=== PATIENT | female | born 1960 | race Caucasian/White ===

== ENCOUNTER 2023-07-11 13:20 | Emergency (ER) | payer SELFPAY ==
[2023-07-11 13:49] VITALS: BP 116/69; PULSE 72; RESP 16; TEMP 36.8; O2SAT 95; BMI 19.5
--- NOTE | 2023-07-11 13:55 | XR_ITS ---
WS: [id number] Left knee, 3 views, 07/11/2023 Clinical Data: fall injury Comparison: None. Findings: There is irregularity of the tibial spines which could indicate an acute fracture. The joint spaces s how no narrowing. The left patella is intact. There is soft tissue swelling over the medial aspect of the left knee. Impression: Irregularity of the tibial spines which could represent a tibial spine fracture.
--- NOTE | 2023-07-11 13:56 | W.ED.EXTPRO ---
HPI - Extremity Problem General: Chief complaint: Extremity Injury, Lower Stated complaint: fall, left knee injury Time Seen by Provider: 07/11/23 13:55 History of Present Illness: 63-year-old female comes in today for complaints of injury to the left knee. Patient endorses that she was walking across the floor when her cat got under her foot causing her to fall and strike her knee against the concrete floor. Since then patient has had increased pain and discomfort to the anterior part of the knee. Patient denies any prior injuries. Patient is a chronic cigarette smoker. Patient takes no routine medications. Patient uses acetaminophen for pain. Patient appears nontoxic. Associated symptoms: Deny chest pain or fever(s) Review of Systems General: Reports: 10 or more systems reviewed and unremarkable except in HPI and below Const: Denies: fever(s) Card: Denies: chest pain Resp: Denies: dyspnea GI: Denies: nausea or vomiting Musc: Reports: joint pain (Left knee) Physical Exam Const: COMMON NORMALS: alert HENMT: COMMON NORMALS: normocephalic HEAD & SCALP: normocephalic Neck/C-Spine: COMMON NORMALS: full ROM Resp: COMMON NORMALS: normal respiratory effort and clear to auscultation bilaterally AUSCULTATION: clear to auscultation bilaterally Cardio: COMMON NORMALS: regular rate and regular rhythm RATE: regular rate RHYTHM: regular rhythm Back/Pelvis: COMMON NORMALS: thoracic and lumbar spine normal to inspection Extremity: LEFT LOWER EXTREMITY: Yes knee joint (Anterior tenderness, decreased range of motion due to pain) Left knee: Yes inspection, Yes palpation, Yes ROM and Yes neurovascular exam Neuro: SENSORIUM/ORIENTATION: Yes alert Skin: COMMON NORMALS: turgor normal GENERAL SKIN EXAM: turgor normal Course Vital Signs: Vital signs: Vital Signs Temperature 98.2 F 07/11/23 13:49 Pulse Rate 72 07/11/23 13:49 Respiratory Rate 16 07/11/23 13:49 Blood Pressure 116/69 07/11/23 13:49 Pulse Oximetry 95 07/11/23 13:49 Oxygen Delivery Me thod Room Air 07/11/23 13:49 MDM - Extremity (Nontraumatic) Medical Decision Making 63-year-old female comes in today for complaints of injury to the left knee. On exam patient has some tenderness to the anterior part of the left knee along the joint line. Patella is nontender to palpation. Vital signs are normal. Differential diagnosis includes contusion, meniscal injury, ligament injury, dislocation, fracture. X-ray of the knee noted a tibial spine fracture. Reviewed this with Dr. Yi whom agreed with plan for knee immobilizer and crutches, and requested CT scan for further evaluation of injury for possible surgical intervention. Discussed this with patient who agreed to plan and recommendations for follow-up or return to the ER. All radiology interpretation(s) finalized by discharge Discharge Plan Discharge Patient Disposition: Home Clinical Impression: Closed displaced fracture of tibial spine Qualifiers: Encounter type: initial encounter Laterality: left Qualified Code(s): S82.112A - Displaced fracture of left tibial spine, initial encounter for closed fracture Condition: Stable Prescriptions: New hydrocodone-acetaminophen 5-325 mg tablet 1 tab PO Q6H PRN (Reason: pain) Qty: 12 0RF Discharge Orders: Discharge ED (Routine); Ordered 07/11/23 Ordered By: Sreekanth Jackson Referrals: Emely Yi MD [Physician] - Discharge Diet: Usual diet Discharge Activity: Increase activity as tolerated Patient Instructions: Fractures - Knee Activity Restrictions/Additional Instructions: Use acetaminophen and/or ibuprofen to help control pain. Use hydrocodone for severe pain. Use ice packs for further pain relief. Elevate leg is much as possible. Wear knee immobilizer and use crutches for ambulation. Case management will help you contact orthopedics for follow-up. You are welcome to follow-up with the orthopedist of your choice. Return to ED for new concerns. Coding Level of Care Code ED [employer] for Saeed Alan
--- NOTE | 2023-07-11 15:06 | CTR_ITS ---
PROCEDURE INFORMATION: Exam: CT Left Lower Extremity Without Contrast, Knee Exam date and time: 07/11/2023 4:14 PM Age: 63 years old Clinical indication: Injury or trauma; Fall; Blunt trauma; Left; Patient HX: Patient tripped and fell at home. C/O knee pain. Unable to bear weight. ; Additional info: Tibial spine fracture TECHNIQUE: Imaging protocol: CT of the left lower extremity without contrast was performed. Exam focused on the knee. Radiation optimization: All CT scans at this facility use at least one of these dose optimization techniques: automated exposure control; mA and/or kV adjustment per patient size (includes targeted exams where dose is matched to clinical indication); or iterative reconstruction. REPORTING DATA: Count of CT and Cardiac NM exams in prior 12 months: This patient has received 0 known CTs and 0 known cardiac nuclear medicine studies in the 12 months prior to the current study. COMPARISON: CR XR knee LT 3V* [id number] 07/11/2023 2:19 PM RADIATION DOSE METRICS: Total DLP (mGy-cm): 641.43 FINDINGS: Bones/joints: Large lipohemarthrosis at the left knee. Markedly comminuted fracture of the lateral tibial plateau with involvement of both the medial and lateral tibial spines and intercondylar notch. No significant depression of the fracture, there is mild displacement superiorly at the tibial spines in the intercondylar notch. No dislocation. Bones are mildly osteopenic. Soft tissues: Soft tissue swelling and hemorrhage medial/posterior to the left knee. No radiopaque foreign body. CT/CT knee LT wo con* [id number] IMPRESSION: 1. Markedly comminuted fracture of the lateral tibial plateau with involvement of both the medial and lateral tibial spines and intercondylar notch. No significant depression of the fracture, there is mild displacement superiorly at the tibial spines in the intercondylar notch. 2. Large lipohemarthrosis at the left knee. 3. Soft tissue swelling and hemorrhage medial/posterior to the left knee. 4. Incidental/nonacute findings are listed in the report.
[2023-07-11] MEDS: HYDROcodone-acetaminophen 7.5-325 mg Tablet 1 TAB PO (15:15)
[2023-07-11 17:08] VITALS: BP 116/69; PULSE 72; RESP 16; O2SAT 95
--- NOTE | 2023-07-12 10:09 | DCPLANNER ---
Referral was sent to ortho on 07/12/23 at 10:03 am. Ortho clinic to contact patient.
== END 2023-07-11 17:10 | disposition home or self-care (01) ==
PROVIDERS: Emergency Provider Nurse Practitioner Family
DX: S82.112A Displaced fracture of left tibial spine, initial encounter for closed fracture (principal); W01.0XXA Fall on same level from slipping, tripping and stumbling without subsequent striking against object, initial encounter
CPT/HCPCS: 73562; 73700; 99284

== ENCOUNTER 2023-07-17 06:00 | Outpatient (CLI) | payer SELFPAY | END 2023-07-17 06:01 | disposition home or self-care (01) | LOC: SPT 07-18 09:49 | PROVIDERS: PCP Family Medicine; Visit Provider Specialist | DX: Z46.89 Encounter for fitting and adjustment of other specified devices (principal); S82.113 Displaced fracture of unspecified tibial spine; X58.XXXD Exposure to other specified factors, subsequent encounter | CPT/HCPCS: 97760; L1832 ==

== ENCOUNTER → 2023-07-17 14:14 | Outpatient (BNVA) | payer SELFPAY | PROVIDERS: PCP Family Medicine; Referring Provider Nurse Practitioner Family; Visit Provider Specialist | DX: S82.112A Displaced fracture of left tibial spine, initial encounter for closed fracture; S82.122A Displaced fracture of lateral condyle of left tibia, initial encounter for closed fracture; W01.0XXA Fall on same level from slipping, tripping and stumbling without subsequent striking against object, initial encounter | CPT/HCPCS: 73562 ==

== ENCOUNTER → 2023-08-07 15:20 | Outpatient (BNVA) | payer MEDICAID, SELFPAY | PROVIDERS: PCP Family Medicine; Visit Provider Specialist | DX: S82.122A Displaced fracture of lateral condyle of left tibia, initial encounter for closed fracture (principal); S82.112A Displaced fracture of left tibial spine, initial encounter for closed fracture; W01.0XXA Fall on same level from slipping, tripping and stumbling without subsequent striking against object, initial encounter | CPT/HCPCS: 73562 ==

== ENCOUNTER 2023-08-28 13:07 | Outpatient (CLI) | payer MEDICAID, SELFPAY ==
--- NOTE | 2023-08-28 13:30 | CT_ITS ---
WS: [id number] CT LEFT KNEE, NONCONTRAST. HISTORY: Pain, follow-up fracture. Technique: All CT scans at [facility] use at least one of these dose optimization techniques: automated exposure control; mA and/or kV adjustment per patient size (includes targeted exams where dose is matched to clinical indication); or iterative reconstruction. DLP: 318.08 mGy.cm COMPARISON: 07/11/2023, radiograph 08/07/2023 Reidentified is a tibial plateau fracture. Fracture extends to the base of the tibial spines and ther e is mild displacement of the tibial spines. No union across the tibial spines. The base of the spine is displaced by 3 mm. The lateral tibial plateau fracture does demonstrate interval healing. There i s no progression of fracture or depressed fracture fragments. Fracture of the lateral tibial plateau extends anterior to posterior. Very small joint effusion. Lipohemarthrosis has improved. Osteopenia involving the medial femoral con dyle but no fracture. Good placement of the patella. IMPRESSION: 1. Incomplete healing fracture extends to the base of the tibial spines. Fracture displaced by 3 mm. 2. Interval healing of the lateral tibial plateau fracture. No depression.
== END 2023-08-28 13:08 | disposition home or self-care (01) ==
LOC: RAD 13:08
PROVIDERS: PCP Family Medicine; Visit Provider Specialist
DX: S82.112D Displaced fracture of left tibial spine, subsequent encounter for closed fracture with routine healing (principal); S82.142D Displaced bicondylar fracture of left tibia, subsequent encounter for closed fracture with routine healing; X58.XXXD Exposure to other specified factors, subsequent encounter
CPT/HCPCS: 73700

== ENCOUNTER → 2023-09-02 13:30 | Outpatient (BNVA) | payer MEDICAID, SELFPAY | PROVIDERS: PCP Family Medicine; Visit Provider Specialist | DX: S82.112 Displaced fracture of left tibial spine; S82.122D Displaced fracture of lateral condyle of left tibia, subsequent encounter for closed fracture with routine healing; X58.XXXD Exposure to other specified factors, subsequent encounter | CPT/HCPCS: 73562 ==

== ENCOUNTER → 2023-09-11 08:44 | Outpatient (BNVA) | payer MEDICAID, SELFPAY | PROVIDERS: PCP Family Medicine; Visit Provider Specialist | DX: S82.122D Displaced fracture of lateral condyle of left tibia, subsequent encounter for closed fracture with routine healing; S82.112 Displaced fracture of left tibial spine; X58.XXXD Exposure to other specified factors, subsequent encounter | CPT/HCPCS: 73562 ==

== ENCOUNTER → 2023-10-02 11:02 | Outpatient (BNVA) | payer MEDICAID, SELFPAY | PROVIDERS: PCP Family Medicine; Visit Provider Specialist | DX: S82.122D Displaced fracture of lateral condyle of left tibia, subsequent encounter for closed fracture with routine healing; S82.112 Displaced fracture of left tibial spine; X58.XXXD Exposure to other specified factors, subsequent encounter | CPT/HCPCS: 73562 ==

== ENCOUNTER → 2023-11-06 09:58 | Outpatient (BNVA) | payer MEDICAID, SELFPAY | PROVIDERS: PCP Family Medicine; Visit Provider Specialist | DX: S82.122D Displaced fracture of lateral condyle of left tibia, subsequent encounter for closed fracture with routine healing (principal); S82.112 Displaced fracture of left tibial spine; X58.XXXD Exposure to other specified factors, subsequent encounter | CPT/HCPCS: 73562 ==

== ENCOUNTER 2024-07-22 07:46 | Outpatient (CLI) | payer MEDICARE, MEDICAID, SELFPAY ==
--- NOTE | 2024-07-22 07:53 | CT_ITS ---
WS: [id number] LDCT LUNG CANCER SCREENING HISTORY: NICOTINE DEPENDENCE, CIGARETTES TECHNIQUE: Axial imaging performed from the apices to 1 cm below the costophrenic angles. Coronal and sagittal reformats are submitted with axial MIP series. All CT scans at [facility] use at least one of these dose optimization techniques: automated exposure control; mA and/or kV adjustment per patient size (includes targeted exams where dose is matched to clinical indication); or iterativ e reconstruction. DLP: 48.67 mGy.cm DIvol: Mean CTDIvol: 0.70 (mGy) COMPARISON: None available. Diagnostic quality: Satisfactory Lungs: Mild pulmonary hyperinflation. Micronodules central LEFT upper lobe and pleural based RIGHT mi ddle lobe. No additional masses or nodules. Linear atelectasis at the LEFT lung base. No endobronchia l lesions. Heart: Normal size heart with no pericardial effusion.. Other findings: Mild atherosclerosis aorta. No adenopathy. Normal size pulmonary artery. No adrenal m ass. Increase in thoracic kyphosis. CT/CT lung screening [id number] IMPRESSION: LUNG-RADS: 2-Benign Appearance or Behavior FOLLOW UP: 12 Month: Continue annual screening with LDCT OTHER FINDINGS (S MODIFIER): None.
== END 2024-07-22 07:47 | disposition home or self-care (01) ==
LOC: RAD 07:47
PROVIDERS: PCP Family Medicine; Visit Provider Family Medicine
DX: F17.210 Nicotine dependence, cigarettes, uncomplicated (principal); R91.8 Other nonspecific abnormal finding of lung field; I70.0 Atherosclerosis of aorta
CPT/HCPCS: 71271

== ENCOUNTER 2024-07-31 12:59 | Outpatient (CLI) | payer MEDICARE, MEDICAID, SELFPAY ==
--- NOTE | 2024-07-31 13:01 | XR_ITS ---
WS: [id number] SCREENING DEXA SCAN [facility] CLINICAL INFORMATION: OSTEOPOROSIS COMPARISON: None. FINDINGS: The L1-L4 bone mineral density measures 0.717 g/cm2. This corresponds to a T score score of -3.9 and Z score of -1.8. Left femoral neck bone mineral density measures 0.559 g/cm2. This corresponds to a T score of -3.6 an d Z score of -2.0. Right femoral neck bone mineral density measures 0.614 g/cm2. This corresponds to a T score -3.1of an d Z score of -1.6. Mean femoral neck bone mineral density measures 0.587 g/cm2. This corresponds to a T score of -3.3 an d Z score of -1.8. XR/XR DEXA axial skeleton* [id number] IMPRESSION: Osteoporosis lumbar spine. Osteoporosis femoral necks. Patient's FRAX calculated 10 year probability for major osteoporotic fracture i s 22.0% and osteoporotic hip fracture is 12.2%.
--- NOTE | 2024-07-31 13:01 | MM_ITS ---
WS: [id number] BILATERAL 3D TOMOSYNTHESIS DIGITAL SCREENING MAMMOGRAPHY WITH CAD CLINICAL INFORMATION: SCREENING HISTORY: Screening mammogram. No current complaints. COMPARISON: Baseline TECHNIQUE: Bilateral CC and MLO views. FINDINGS: The breasts are composed of heterogeneous fibroglandular density tissue, which can limit the detectio n of small underlying mass lesions. No suspicious mass, asymmetry, calcifications, or architectural d istortion. No evidence of malignancy. MM/MM [facility] tomosynthesis [id number] IMPRESSION: DENSITY: The breasts are heterogeneously dense, which may obscure small masses. BI-RADS: 2 - Benign FOLLOW UP: 1 Year Follow-up Recommend return to annual screening mammography.
== END 2024-07-31 13:00 | disposition home or self-care (01) ==
LOC: RAD 13:00
PROVIDERS: PCP Family Medicine; Visit Provider Family Medicine
DX: Z12.31 Encounter for screening mammogram for malignant neoplasm of breast (principal); M81.0 Age-related osteoporosis without current pathological fracture
CPT/HCPCS: 77063; 77067; 77080

== ENCOUNTER → 2024-10-19 10:43 | Outpatient (BNVA) | payer MEDICARE, MEDICAID, SELFPAY | PROVIDERS: PCP Family Medicine; Referring Provider Family Medicine; Visit Provider Internal Medicine | DX: M81.0 Age-related osteoporosis without current pathological fracture (principal); E55.9 Vitamin D deficiency, unspecified; S82.112 Displaced fracture of left tibial spine; E03.9 Hypothyroidism, unspecified; X58.XXXD Exposure to other specified factors, subsequent encounter | CPT/HCPCS: 36415; 80053; 82306; 82310; 83970; 84439; 84443; 99204 ==

== ENCOUNTER 2025-04-12 09:44 | Outpatient (CLI) | payer MEDICARE, MEDICAID, SELFPAY ==
[2025-04-12 11:23] LABS: Alanine Aminotransferase 11 U/L (0-33); Albumin Level 3.9 g/dL (3.5-5.2); Alkaline Phosphatase 126 U/L (35-105); Anion Gap 18.6 (5-19); Aspartate Amino Transferase 14 U/L (0-32); Blood Urea Nitrogen 15 mg/dL (8-23); Calcium 9.8 mg/dL (8.5-10.5); Carbon Dioxide 24 mmol/L (22-29); Chloride 105 mmol/L (98-107); Globulin 3.0 g/dL (1.3-4.6); Glucose 104 mg/dL (65-115); Osmolality Calculated 299 mOsm/kg (285-295); Potassium 3.6 mmol/L (3.5-5.1); Sodium 144 mmol/L (136-145); Total Protein 6.9 g/dL (6.6-8.7)
== END 2025-04-12 09:45 | disposition home or self-care (01) ==
LOC: LAB 09:47
PROVIDERS: PCP Family Medicine; Visit Provider Internal Medicine
DX: M81.0 Age-related osteoporosis without current pathological fracture (principal); E55.9 Vitamin D deficiency, unspecified
CPT/HCPCS: 36415; 80053; 82306

== ENCOUNTER → 2025-04-19 10:33 | Outpatient (BNVA) | payer MEDICARE, MEDICAID, SELFPAY | PROVIDERS: PCP Family Medicine; Visit Provider Internal Medicine | DX: E55.9 Vitamin D deficiency, unspecified (principal); M81.0 Age-related osteoporosis without current pathological fracture | CPT/HCPCS: 99214 ==

== ENCOUNTER 2025-08-02 12:50 | Outpatient (CLI) | payer MEDICARE, MEDICAID, SELFPAY ==
--- NOTE | 2025-08-02 14:05 | MM_ITS ---
WS: [id number] BILATERAL 3D TOMOSYNTHESIS DIGITAL SCREENING MAMMOGRAPHY WITH CAD CLINICAL INFORMATION: ENCOUNTER FOR SCREENING FOR NEOPLASM OF BREAST HISTORY: Screening mammogram. No current complaints. COMPARISON: 2023 TECHNIQUE: Bilateral CC and MLO views. FINDINGS: The breasts are composed of heterogeneous fibroglandular density tissue, which can limit the detection of small underlying mass lesions. No suspicious mass, asymmetry, calcifications, or architectural distortion. No evidence of malignancy. MM/MM [facility] tomosynthesis [id number] IMPRESSION: DENSITY: The breasts are heterogeneously dense, which may obscure small masses. BI-RADS: 1 - Negative FOLLOW UP: 1 Year Follow-up Recommend return to annual screening mammography.
== END 2025-08-02 12:51 | disposition home or self-care (01) ==
LOC: RAD 12:51
PROVIDERS: PCP Family Medicine; Visit Provider Physician Assistant
DX: Z12.31 Encounter for screening mammogram for malignant neoplasm of breast (principal); R92.333 Mammographic heterogeneous density, bilateral breasts; R92.1 Mammographic calcification found on diagnostic imaging of breast
CPT/HCPCS: 77063; 77067

== ENCOUNTER 2025-08-09 08:49 | Outpatient (CLI) | payer MEDICARE, MEDICAID, SELFPAY ==
--- NOTE | 2025-08-09 08:53 | CT_ITS ---
WS: [id number] LDCT LUNG CANCER SCREENING TECHNIQUE: Noncontrast CT of the chest with coronal and sagittal reformatted images. CLINICAL INFORMATION: NICOTINE DEPENDENCE,CIGARETTES COMPARISON: 2023 DLP: 60.60 mGy.cm DIvol: Mean CTDIvol: 0.70 (mGy),Mean CTDIvol: 0.70 (mGy) All CT scans at [facility] use at least one of these dose optimization techniques: automated exposure control; mA and/or kV adjustment per patient size (includes targeted exams where dose is matched to clinical indication); or iterative reconstruction. FINDINGS: Hyperinflation. Stable tiny nodules LEFT upper lobe and RIGHT middle lobe. Subsegmental atelectasis LEFT lower lobe. No new suspicious pulmonary parenchymal abnormalities Aortic calcification. No mediastinal or hilar lymphadenopathy. Thoracic kyphosis. Dense coronary calcification. No axillary lymphadenopathy. Adrenal glands are normal. CT/CT lung screening [id number] IMPRESSION: LUNG-RADS: 2-Benign Appearance or Behavior FOLLOW UP: 12 Month: Continue annual screening with LDCT
== END 2025-08-09 08:50 | disposition home or self-care (01) ==
LOC: RAD 08:50
PROVIDERS: PCP Family Medicine; Visit Provider Physician Assistant
DX: Z12.2 Encounter for screening for malignant neoplasm of respiratory organs (principal); F17.210 Nicotine dependence, cigarettes, uncomplicated; J98.11 Atelectasis; I70.0 Atherosclerosis of aorta; M40.204 Unspecified kyphosis, thoracic region; I25.84 Coronary atherosclerosis due to calcified coronary lesion
CPT/HCPCS: 71271